=== PATIENT | female | born 1995 | race Caucasian/White ===

== ENCOUNTER 2024-01-02 13:51 | Emergency (ER) | payer OTHER, SELFPAY ==
[2024-01-02] VITALS (9 sets, daily range): BP systolic 102–124; BP diastolic 57–78; PULSE 72–100; RESP 18–19; TEMP 37.1; O2SAT 96–100; BMI 37.4
--- NOTE | 2024-01-02 15:12 | DI.US.S_ITS ---
PROCEDURE: US PELVIC COMPLETE INDICATIONS: HEAVY BLEEDING, CRAMPING POST PHARMACUTICAL VAB TECHNIQUE: Real-time scanning was performed of the pelvic organs, with image documentation. COMPARISON: None. FINDINGS: Uterus: Uterus is anteverted and normal in size at 11.9 x 6.6 x 6.9 cm. The myometrium is homogeneous. The endometrium measures 12.4 mm combined thickness. Homogeneous appearance of the endometrium. Posterior, intramural fibroid of the mid uterine segment measuring 4.7 centimeters. Ovaries: Not visualized due to overlying bowel gas. Other: No pathologic free abdominal or pelvic fluid. IMPRESSION: Homogeneous appearance of the endometrium. Retained products not likely. Posterior intramural fibroid measuring 4.7 centimeter. We strive to produce accurate, complete, and clear reports of imaging services. To assist us in improving patient care, this report was composed using standard report templates and voice recognition software. Therefore, it may contain abnormal punctuation, insertions and/or omissions. Occasional wrong-word or sound-alike substitutions may occur. Though we review the report and make efforts to correct it, we do recommend that the report be read carefully in proper context to recognize any text inaccuracies. Dictated by: Linus Smith M.D. on 01/02/2024 at 16:04 Approved by: Linus Smith M.D. on 01/02/2024 at 16:05
[2024-01-02 16:40] LABS: Add Manual Diff / Slide Review NO; Basophils Absolute Auto 0 /uL (0-100); Basophils Percent Auto 0.3 % (0-2); Eosinophils Absolute Auto 0 /uL (0-450); Eosinophils Percent Auto 0.3 % (2-4); Hematocrit 39.1 % (36-46); Hemoglobin 13.4 g/dL (12.0-16.0); Lymphocytes Absolute Auto 1200 /uL (1100-4500); Lymphocytes Percent Auto 6.6 % (25-40); Mean Corpuscular HGB Conc 34.3 % (30-36); Mean Corpuscular Hemoglobin 31.1 PG (26-34); Mean Corpuscular Volume 90.7 fL (80-100); Monocytes Absolute Auto 800 /uL (0-900); Monocytes Percent Auto 4.5 % (3-14); Neutrophils Absolute Auto 16000 /uL (1500-7000); Neutrophils Percent Auto 88.3 % (50-75); Platelet Count 380 X10^3/uL (150-400); Red Cell Distribution Width 13.7 % (11.6-14.8); White Blood Cell Count 18.1 X10^3/uL (4.5-11.0)
[2024-01-02 16:54] LABS: Alanine Aminotransferase 18 IU/L (<35); Albumin Globulin Ratio 1.4 (1.0-2.8); Alkaline Phosphatase 77 U/L (38-126); Aspartate Aminotransferase 21 IU/L (14-36); BUN Creatinine Ratio 11.7 (6-22); Bilirubin Total 0.3 mg/dL (0.2-1.3); Blood Urea Nitrogen 7 mg/dL (7-17); Calcium 9.2 mg/dL (8.4-10.2); Carbon Dioxide 23 mmol/L (22-32); Chloride 106 mmol/L (98-107); Estimated Glomerular Filt Rate > 60 mL/min (>60); Globulin 2.9 g/dL (1.7-4.1); Glucose 98 mg/dL (70-100); HEMOLYSIS < 15 (0-50); Sodium 136 mmol/L (137-145); Total Protein 6.9 g/dL (6.3-8.2)
[2024-01-02 17:09] LABS: HCG Quantitative /Beta subunit 360.3 mIU/mL
--- NOTE | 2024-01-02 17:45 | ED.PREGNANCY ---
HPI - General Chief complaint: Vaginal Bleeding Stated complaint: per pt having miscarriage, sent by OB Time Seen by Provider: 01/02/24 15:11 Source: patient Mode of arrival: Ambulatory Limitations: no limitations History of Present Illness HPI Narrative: 28-year-old female was expected to be 11 weeks but had stopped growing by ultrasound at 8 weeks. Patient states she had OB visit with ultrasound on Friday noted to have no heartbeat and was prescribed an dose of an oral medication as well as 1 intravaginal medication to assist with miscarriage likely misoprostol. She took this yesterday. Has had severe abdominal cramping and heavily vaginal bleeding clots referred here by her OB providers. Patient states cramping was pretty significant. No fevers that she is aware of, had some nausea but vomiting. No syncope. No chest pain or shortness of breath. No urinary symptoms no diarrhea or constipation. States she was having quite a bit of bleeding with large clots. She states she did not look at the size of the clots but states going through a pad about every 2-3 hours. Patient contacted her OB clinic who referred her here, she went to the clinic on [address] who also referred her back to ourselves. She did have some ibuprofen at about noon today has not had any other medications. States no other daily prescriptions. Has had prior tonsillectomy. No known drug allergies. Vapes tobacco, no recreational drugs. She is accompanied by her today. She follows with biopharmaceutical rep [facility]. Related Data Previous Rx's Medication Instructions Recorded ondansetron 4 mg disintegrating 4 mg PO Q6H PRN nausea and 01/02/24 tablet vomiting #10 tabs tramadol 50 mg tablet 50 mg PO Q6H PRN pain #10 tabs 01/02/24 Allergies Allergy/AdvReac Type Severity Reaction Status Date / Time No Known Drug Allergies Allergy Verified 01/02/24 14:04 Review of Systems Review of Systems ROS Unobtainable: All systems reviewed & are unremarkable except as noted in HPI and below Exam Narrative Exam Narrative: GENERAL: Alert and oriented x three, distress. HEENT: Head normocephalic, atraumatic, EOMI, pupils reactive, face symmetric, moist mucous membranes NECK: Supple, full range of motion CARDIOVASCULAR: Regular rate and rhythm without murmurs, rubs or gallops. RESPIRATORY: Breath sounds equal bilaterally, no wheezes rales or rhonchi. ABDOMEN: Soft, mild generalized lower abdominal tenderness. Normoactive bowel sounds all 4 quadrants. No guarding or rebound, rigidity, no mass : No CVA tenderness EXTREMITIES: Normal range of motion, no clubbing or edema. Neurovascularly intact NEUROLOGICAL: Cranial nerves II through XII grossly intact. Moving all extremities SKIN: Warm, dry, no petechiae, no rashes or lesions. Initial Vital Signs Initial Vital Signs: Vital Signs Temperature 98.8 F 01/02/24 14:04 Pulse Rate 100 H 01/02/24 14:04 Respiratory Rate 18 01/02/24 14:04 Blood Pressure 115/75 01/02/24 14:04 Pulse Oximetry 98 01/02/24 14:04 Oxygen Delivery Method Room Air 01/02/24 14:04 Course Orders Ordered: ED Orders 01/02/24 15:12 US pelvic complete Stat 01/02/24 16:16 Complete Blood Count AUTO DIFF Stat Comprehensive Metabolic Panel Stat HCG Quantitative /Beta subunit Stat Type and Screen Stat Discontinued Medications Ketorolac Tromethamine (Ketorolac 30 Mg/Ml Vial) 15 mg IV NOW ONE Stop: 01/02/24 17:57 Last Admin: 01/02/24 18:32 Dose: 15 mg Vital Signs Vital signs: Vital Signs - 8 hr 01/02/24 14:04 01/02/24 15:54 01/02/24 16:00 Temperature 98.8 F Pulse Rate 100 H 83 82 Respiratory Rate 18 19 Blood Pressure 115/75 Pulse Oximetry 98 97 97 Oxygen Delivery Method Room Air Room Air 01/02/24 16:00 01/02/24 16:17 01/02/24 16:17 Temperature Pulse Rate 79 Respiratory Rate Blood Pressure 121/67 118/78 Pulse Oximetry 98 Oxygen Delivery Method 01/02/24 16:30 01/02/24 16:30 01/02/24 17:00 Temperature Pulse Rate 82 77 Respiratory Rate 18 Blood Pressure 107/57 L Pulse Oximetry 98 97 Oxygen Delivery Method Room Air 01/02/24 17:00 01/02/24 17:30 01/02/24 17:30 Temperature Pulse Rate 74 Respiratory Rate 19 Blood Pressure 102/67 107/58 L Pulse Oximetry 96 Oxygen Delivery Method Room Air 01/02/24 18:00 01/02/24 18:00 01/02/24 18:30 Temperature Pulse Rate 72 75 Respiratory Rate Blood Pressure 124/77 Pulse Oximetry 99 100 Oxygen Delivery Method MDM - OB/Uterine Contractions Lab Data 01/02/24 16:16 01/02/24 16:16 Labs: Lab Results 01/02/24 Range/Units 16:16 WBC 18.1 H (4.5-11.0) X10^3/uL RBC 4.30 (4.0-5.2) X10^6/uL Hgb 13.4 (12.0-16.0) g/dL Hct 39.1 (36-46) % MCV 90.7 (80-100) fL MCH 31.1 (26-34) PG MCHC 34.3 (30-36) % RDW 13.7 (11.6-14.8) % Plt Count 380 (150-400) X10^3/uL Neut % (Auto) 88.3 H (50-75) % Lymph % (Auto) 6.6 L (25-40) % Kay % (Auto) 4.5 (3-14) % Eos % (Auto) 0.3 L (2-4) % Baso % (Auto) 0.3 (0-2) % Neut # (Auto) 10636 H (9965-7915) /uL Lymph # (Auto) 1200 (1446-0952) /uL Kay # (Auto) 800 (0-900) /uL Eos # (Auto) 0 (0-450) /uL Baso # (Auto) 0 (0-100) /uL Sodium 136 L (137-145) mmol/L Potassium 4.0 (3.4-5.1) mmol/L Chloride 106 (98-107) mmol/L Carbon Dioxide 23 (22-32) mmol/L BUN 7 (7-17) mg/dL Creatinine 0.60 (0.52-1.04) mg/dL Estimated GFR > 60 (>60) mL/min BUN/Creatinine Ratio 11.7 (6-22) Glucose 98 (70-100) mg/dL Calcium 9.2 (8.4-10.2) mg/dL Total Bilirubin 0.3 (0.2-1.3) mg/dL AST 21 (14-36) IU/L ALT 18 (<35) IU/L Alkaline Phosphatase 77 (38-126) U/L Total Protein 6.9 (6.3-8.2) g/dL Albumin 4.0 (3.5-5.0) g/dL Globulin 2.9 (1.7-4.1) g/dL Albumin/Globulin Ratio 1.4 (1.0-2.8) HCG, Quant 360.3 mIU/mL Blood Type AB Positive Antibody Screen Negative Urine Dip Bedside Urine Glucose Negative Bedside Urine Bilirubin - Negative Bedside Urine Ketone - Negative Urine Specific [place] 1.010 Bedside Urine Occult Blood +++ Bedside Urine pH 6.0 Bedside Urine Protein - Negative Bedside Urine Urobilinogen - Negative Bedside Urine Nitrite - Negative Bedside Urine Leukocytes - Negative Esterase Imaging Data US - OB: Radiologist's Impression: Close Pelvis Ultrasound (Signed) Linus Smith - 01/02/[address] [address] Ultrasound Report Signed Patient: Essence Livingston I MR#: [id number] : 1995 Acct:[id number] Age/Sex: 28 / F Date of Service: 01/02/24 Loc: ED Accession Number: [id number] Procedure: US pelvic complete Ordering Provider: Rhoda Hawk D.O. PROCEDURE: US PELVIC COMPLETE INDICATIONS: HEAVY BLEEDING, CRAMPING POST PHARMACUTICAL VAB TECHNIQUE: Real-time scanning was performed of the pelvic organs, with image documentation. COMPARISON: None. FINDINGS: Uterus: Uterus is anteverted and normal in size at 11.9 x 6.6 x 6.9 cm. The myometrium is homogeneous. The endometrium measures 12.4 mm combined thickness. Homogeneous appearance of the endometrium. Posterior, intramural fibroid of the mid uterine segment measuring 4.7 centimeters. Ovaries: Not visualized due to overlying bowel gas. Other: No pathologic free abdominal or pelvic fluid. IMPRESSION: Homogeneous appearance of the endometrium. Retained products not likely. Posterior intramural fibroid measuring 4.7 centimeter. We strive to produce accurate, complete, and clear reports of imaging services. To assist us in improving patient care, this report was composed using standard report templates and voice recognition software. Therefore, it may contain abnormal punctuation, insertions and/or omissions. Occasional wrong-word or sound-alike substitutions may occur. Though we review the report and make efforts to correct it, we do recommend that the report be read carefully in proper context to recognize any text inaccuracies. Dictated by: Linus Smith M.D. on 01/02/2024 at 16:04 Approved by: Linus Smith M.D. on 01/02/2024 at 16:05 [facility] Narrative Medical decision making narrative: 28-year-old female who presents with known miscarriage she had oral as well as intravaginally medication to assist with this yesterday and had pretty significant cramping and had bleeding with quite a bit of clots today. Patient was slightly tachycardic upon arrival. Vitals have improved during stay. She states bleeding has not been more than a pad every 2 or 3 hours,. Cramping is somewhat improved at this point but she states sort of waxes and wanes in intensity. Vaginal ultrasound does not show any retained products. Does have what looks to be a fibroid and patient states she was told the set prior ultrasound visit with her OBGYN. Patient does have a white count of 18 but no other obvious infectious changes, hemoglobin is appropriate, platelets are appropriate with otherwise normal electrolytes. HCG is 360 Patient is AB-positive. Plan for patient to follow up with her OBGYN, discussed return precautions. She has had some nausea we will give a script for Zofran. Had a dose of Toradol here and plan to continue Discharge Plan Departure Patient Disposition: Home Clinical Impression: Miscarriage Activity Restrictions/Additional Instructions: Follow-up with your obstetric providers. You may take Tylenol up to a 1000 mg every 6 hours and/or 600 mg every 6 hours as needed for pain. Take zofran every 6 hours as needed for nausea/vomiting [facility]. Please return for fevers, worsening abdominal back or flank pain, persistent vomiting, lightheadedness or passing out, going through a pad more than once hourly or other new or concerning changes. Prescriptions: New ondansetron 4 mg tablet,disintegrating 4 mg PO Q6H PRN (Reason: nausea and vomiting) Qty: 10 0RF tramadol 50 mg tablet 50 mg PO Q6H PRN (Reason: pain) Qty: 10 0RF Stand Alone Forms: Patient Portal/API
[2024-01-02] MEDS: KETOROLAC 30 MG/ML VIAL 15 MG IV (18:32)
== END 2024-01-02 18:43 | disposition home or self-care (01) ==
PROVIDERS: Emergency Provider Emergency Medicine
DX: O03.9 Complete or unspecified spontaneous abortion without complication (principal)
CPT/HCPCS: 36415; 76856; 80053; 81003; 84702; 85025; 86850; 86900; 86901; 96374; 99284; J1885